=== PATIENT | female | born 1945 | race Caucasian/White ===

== ENCOUNTER → 2017-12-23 15:58 | Outpatient (CLI) | payer MEDICARE, SELFPAY ==
--- NOTE | 2017-12-23 16:06 | DI.US.S_ITS ---
PROCEDURE: US CAROTID DOPPLER BI INDICATIONS: OCCLUSION AND STENOSIS OF BILATERAL CAROTID ARTERIES TECHNIQUE: Color and pulse Doppler interrogation was performed of both carotid systems, with image documentation and velocity measurements. COMPARISON: [facility], US, US VASCULAR SCREENING, 06/04/2017, 11:46. FINDINGS: Stenosis calculations are based on SRU (Society of Radiologists in Ultrasound) criteria. Right side: Brachial blood pressure: 115/68 mm Hg. Common carotid artery peak systolic velocity: 111 cm/sec. Internal carotid artery peak systolic velocity: 149 cm/sec. Internal carotid artery end diastolic velocity: 21 cm/sec. External carotid artery peak systolic velocity: 159 cm/sec. ICA/CCA peak systolic ratio: 1.3. Bryan scale imaging description: Moderate scattered plaque Percent internal carotid artery stenosis: 50-69% stenosis. Vertebral artery: Flow direction is antegrade. Left side: Brachial blood pressure: 111/67 mm Hg. Common carotid artery peak systolic velocity: 88 cm/sec. Internal carotid artery peak systolic velocity: 85 cm/sec. Internal carotid artery end diastolic velocity: 30 External carotid artery peak systolic velocity: 193 cm/s ICA/CCA peak systolic ratio: 1.0. Bryan scale imaging description: Moderate scattered plaque. Percent internal carotid artery stenosis: Less than 50% stenosis Vertebral artery: Flow direction is antegrade. IMPRESSION: 1. 50-69% stenosis involving the right internal carotid artery. 2. Less than 50% left internal carotid artery stenosis. Dictated by: Simon Hayden [facility] Interpreted: Bailee Singleton MD on 12/24/2017 at 8:01 Approved by: Bailee Singleton MD, PhD on 12/24/2017 at 10:33
== END ==
PROVIDERS: Family Provider Internal Medicine; Visit Provider Internal Medicine
DX: I65.23 Occlusion and stenosis of bilateral carotid arteries (principal)
CPT/HCPCS: 93880

== ENCOUNTER 2025-01-15 19:17 | Emergency (ER) | payer MEDICARE, SELFPAY ==
[2025-01-15 19:41] VITALS: BP 186/78; PULSE 84; RESP 16; TEMP 37.2; O2SAT 97; BMI 23.6
--- NOTE | 2025-01-15 19:47 | DI.RAD.S_ITS ---
PROCEDURE: XR CHEST 2V INDICATIONS: fall TECHNIQUE: 2 views of the chest were acquired. COMPARISON: None. FINDINGS: Surgical changes and devices: Calcified breast implants. Lungs and pleura: Lungs are clear. No pleural effusions or pneumothorax. Mediastinum: Mediastinal contours are normal. Heart size is normal. Bones and chest wall: No suspicious bony abnormalities. Soft tissues appear unremarkable. IMPRESSION: No acute cardiopulmonary abnormality is seen. Dictated by: Brian Zhou M.D. on 01/15/2025 at 21:39 Approved by: Brian Zhou M.D. on 01/15/2025 at 21:40
--- NOTE | 2025-01-15 19:47 | DI.RAD.S_ITS ---
PROCEDURE: XR ANKLE RT MIN 3V INDICATIONS: fall TECHNIQUE: 3 views of the ankle were acquired. COMPARISON: [facility], CR, XR FOOT RT MIN 3V, 01/15/2025, 19:54. FINDINGS: Bones: No fractures or dislocations. Ankle mortise is normally aligned. No suspicious bony lesions. Mild degenerative changes. Soft tissues: No tibiotalar joint effusion. Achilles tendon appears normal. IMPRESSION: No acute osseous abnormality. Dictated by: Brian Zhou M.D. on 01/15/2025 at 21:40 Approved by: Brian Zhou M.D. on 01/15/2025 at 21:41
--- NOTE | 2025-01-15 19:47 | DI.RAD.S_ITS ---
PROCEDURE: XR FOOT RT MIN 3V INDICATIONS: fall TECHNIQUE: 3 views of the foot were acquired. COMPARISON: [facility], CR, XR ANKLE RT MIN 3V, 01/15/2025, 19:54. FINDINGS: Bones: No acute fracture identified. Somewhat irregular appearance at the 5th digit interphalangeal joint. There appears to be a bone graft . No dislocation. No suspicious bony lesions. Periarticular lucency at the 5th metatarsal head. Small plantar calcaneal spur. Soft tissues: No tibiotalar joint effusion. Achilles tendon appears normal. IMPRESSION: No acute abnormality identified. Suspected postsurgical change at the 5th digit interphalangeal joint with possible bone graft. Periarticular lucency at the 5th metatarsal head. Findings could be due to an inflammatory arthropathy. Dictated by: Brian Zhou M.D. on 01/15/2025 at 21:41 Approved by: Brian Zhou M.D. on 01/15/2025 at 21:45
[2025-01-15 20:59] VITALS: BP 129/63; PULSE 85; O2SAT 97
[2025-01-15 21:00] VITALS: PULSE 82; O2SAT 97
[2025-01-15 21:01] VITALS: BP 160/69; PULSE 84; O2SAT 97
--- NOTE | 2025-01-15 21:22 | ED_ITS ---
HPI - Fall General Chief Complaint: Fall Stated Complaint: fall, Rt foot swollen , chest pain no thinners Time Seen by Provider: 01/15/25 21:12 Source: patient Mode of arrival: Ambulatory History of Present Illness HPI Narrative: 79-year-old female fell in her home garden yesterday on irregular loose gravel surface, mechanical fall in nature, scraped left anterior murray, has pain and swelling that is increasing to her right foot and also some ankle, right anterior chest wall discomfort as well. Denies increasing shortness of breath. Denies fevers or chills. Denies cough. Denies abdominal or back pain. Denies pain to upper extremities. Denies neck pain. Related Data Home Medications ?Medication ?Instructions ?Recorded ?Confirmed albuterol sulfate 90 mcg/actuation 2 inh inhalation Q6 H PRN shortness 01/15/25 01/15/25 aerosol inhaler of breath or wheezing lisinopril 20 mg tablet 20 mg PO DAILY 01/15/2501/03 Allergies Allergy/AdvReac Type Severity Reaction Status Date / Time acetaminophen (From Percocet) Allergy Intermediate Vomiting Verified 01/15/25 19:39 codeine Allergy Intermediate Verified 01/15/25 19:39 oxycodone (From Percocet) Allergy Intermediate Vomiting Verified 01/15/25 19:39 latex (LATEX) Allergy Unknown Unverified 01/15/25 19:39 Sulfa (Sulfonamide Allergy Unknown Unverified 01/15/25 19:39 Antibiotics) (SULFA (SULFONAMIDE ANTIBIOTICS)) Patient History Social History Smoking Status: Current every day smoker Smoking Status: Current every day smoker tobacco type: cigarettes Alcohol type: hard liquor Exam Narrative Exam Narrative: GENERAL: Well-developed patient, in mild distress. HEAD: Atraumatic. Normocephalic. EYES: Pupils equal round and reactive. Extraocular motions intact. No scleral icterus. No injection or drainage. ENT: Nose without bleeding, purulent drainage. Throat without erythema, tonsillar hypertrophy or exudate. Airway patent. NECK: Trachea midline. Non tender CARDIOVASCULAR: Regular rate and rhythm without murmurs, gallops, or rubs. RESPIRATORY: Clear to auscultation. Breath sounds equal bilaterally. No wheezes, rales, or rhonchi. GASTROINTESTINAL: Abdomen soft, non-tender, nondistended. EXTREMITIES: Left anterior murray with skip lesions strip of abrasions proximally 20 cm in length, no suturable lacerations, no surrounding erythema cellulitis like changes, good cap refill distal extremity. Right ankle tenderness with medial and lateral joint line tenderness but no gross deformity. Right foot has ecchymoses dorsally mid foot with no crepitance but tenderness. BACK: Nontender without deformity or crepitance. No flank tenderness. NEURO: AOx3. Motor functions grossly nonfocal. SKIN: No rash or erythema of visible areas Initial Vital Signs Initial Vital Signs: Vital Signs Temperature 99.0 F 01/15/25 19:41 Pulse Rate 84 01/15/25 19:41 Respiratory Rate 16 01/15/25 19:41 Blood Pressure 186/78 H 01/15/25 19:41 Pulse Oximetry 97 01/15/25 19:41 Oxygen Delivery Method Room Air 01/15/25 19:41 Course Orders Ordered: Discontinued Medications Diphtheria/Tetanus/Acell Pertussis (Tet,Diph,Pertuss(Acell),Vac/Pf 0.5 Ml Syringe) 0.5 ml IM .ONCE ONE Stop: 01/15/25 21:23 Last Admin: 01/15/25 21:27 Dose: 0.5 ml Documented By: SGF Vital Signs Vital signs: Vital Signs - 8 hr 01/15/25 19:41 01/15/25 20:59 01/15/25 20:59 Temperature 99.0 F Pulse Rate 84 85 Respiratory Rate 16 Blood Pressure 186/78 H 129/63 Pulse Oximetry 97 97 Oxygen Delivery Method Room Air 01/15/25 21:00 01/15/25 21:01 01/15/25 21:01 Temperature Pulse Rate 82 84 Respiratory Rate Blood Pressure 160/69 H Pulse Oximetry 97 97 Oxygen Delivery Method 01/15/25 21:30 01/15/25 21:31 01/15/25 21:31 Temperature Pulse Rate 88 86 Respiratory Rate Blood Pressure 191/77 H Pulse Oximetry 98 97 Oxygen Delivery Method MDM - Fall Imaging Data Extremity x-ray #1: Radiologist's Impression: [address] [address] XRay Report Signed Patient: Leigh Gayle MR#: [id number] : 1945 Acct:[id number] Age/Sex: 79 / F Date of Service: 01/15/25 Loc: ED Accession Number: [id number] Procedure: XR foot RT min 3V Ordering Provider: Ilya Hernandez MD PROCEDURE: XR FOOT RT MIN 3V INDICATIONS: fall TECHNIQUE: 3 views of the foot were acquired. COMPARISON: [facility], CR, XR ANKLE RT MIN 3V, 01/15/2025, 19:54. FINDINGS: Bones: No acute fracture identified. Somewhat irregular appearance at the 5th digit interphalangeal joint. There appears to be a bone graft . No dislocation. No suspicious bony lesions. Periarticular lucency at the 5th metatarsal head. Small plantar calcaneal spur. Soft tissues: No tibiotalar joint effusion. Achilles tendon appears normal. IMPRESSION: No acute abnormality identified. Suspected postsurgical change at the 5th digit interphalangeal joint with possible bone graft. Periarticular lucency at the 5th metatarsal head. Findings could be due to an inflammatory arthropathy. Dictated by: Brian Zhou M.D. on 01/15/2025 at 21:41 Approved by: Brian Zhou M.D. on 01/15/2025 at 21:45 Extremity x-ray #2: Radiologist's Impression: Leigh Gayle??79??F??1945 ? Allergy/Adv: acetaminophen, codeine, oxycodone, latex, Sulfa (Sulfonamide Antibiotics) [place] [address] XRay Report Signed Patient: Leigh Gayle MR#: [id number] : 1945 Acct:[id number] Age/Sex: 79 / F Date of Service: 01/15/25 Loc: ED Accession Number: [id number] Procedure: XR ankle RT min 3V Ordering Provider: Ilya Hernandez MD PROCEDURE: XR ANKLE RT MIN 3V INDICATIONS: fall TECHNIQUE: 3 views of the ankle were acquired. COMPARISON: [facility], , XR FOOT RT MIN 3V, 01/15/2025, 19:54. FINDINGS: Bones: No fractures or dislocations. Ankle mortise is normally aligned. No suspicious bony lesions. Mild degenerative changes. Soft tissues: No tibiotalar joint effusion. Achilles tendon appears normal. IMPRESSION: No acute osseous abnormality. Dictated by: Brian Zhou M.D. on 01/15/2025 at 21:40 Approved by: Brian Zhou M.D. on 01/15/2025 at 21:41 Chest x-ray: Radiologist's Impression: [address] [address] XRay Report Signed Patient: Leigh Gayle MR#: [id number] : 1945 Acct:[id number] Age/Sex: 79 / F Date of Service: 01/15/25 Loc: ED Accession Number: [id number] Procedure: XR chest 2V Ordering Provider: Ilya Hernandez MD PROCEDURE: XR CHEST 2V INDICATIONS: fall TECHNIQUE: 2 views of the chest were acquired. COMPARISON: None. FINDINGS: Surgical changes and devices: Calcified breast implants. Lungs and pleura: Lungs are clear. No pleural effusions or pneumothorax. Mediastinum: Mediastinal contours are normal. Heart size is normal. Bones and chest wall: No suspicious bony abnormalities. Soft tissues appear unremarkable. IMPRESSION: No acute cardiopulmonary abnormality is seen. Dictated by: Brian Zhou M.D. on 01/15/2025 at 21:39 Approved by: Brian Zhou M.D. on 01/15/2025 at 21:40 [facility] Narrative Medical decision making narrative: 79-year-old female with ground level fall yesterday, increasing right foot pain and swelling with bruising, right ankle pain, left anterior murray abrasion, right anterior chest discomfort. No respiratory distress. X-ray chest, right ankle, right foot ordered from triage. On my view lateral aspect of the right foot has some haziness and indistinct cuneiform mid foot anatomy, possible fracture, could be arthritic change, we will image right foot with CT scan noncontrast study. XRay foot no distinct fracture. CXR negative. Ankle XRay negative. See ra diology reports. Pt reportedly eloped after XRays, did not stay for CT imaging per nursing. No DC information given by me. Discharge Plan Departure Patient Disposition: Elopement Clinical Impression: Eloped from emergency department, Contusion of foot, Ankle contusion, Chest wall contusion Prescriptions: No Action lisinopril 20 mg tablet 20 mg PO DAILY albuterol sulfate 90 mcg/actuation HFA aerosol inhaler 2 inh inhalation Q6H PRN (Reason: shortness of breath or wheezing)
[2025-01-15] MEDS: TET,DIPH,PERTUSS(ACELL),VAC/PF 0.5 ML SYRINGE IM (21:27)
[2025-01-15 21:30] VITALS: PULSE 88; O2SAT 98
[2025-01-15 21:31] VITALS: BP 191/77; PULSE 86; O2SAT 97
--- NOTE | 2025-01-15 22:00 | PC.NURSE ---
pt states she needs to go home already and does not want to say. pt states she has dogs to let out and take care of and if she needs to come back she will come back tomorrow if symptoms worsen
== END 2025-01-15 22:10 | disposition left against medical advice (07) ==
PROVIDERS: Emergency Provider Emergency Medicine; Family Provider Internal Medicine
DX: S90.31XA Contusion of right foot, initial encounter (principal); S90.01XA Contusion of right ankle, initial encounter; S20.211A Contusion of right front wall of thorax, initial encounter; W18.30XA Fall on same level, unspecified, initial encounter; Y93.H2 Activity, gardening and landscaping; F17.210 Nicotine dependence, cigarettes, uncomplicated; Z23 Encounter for immunization
CPT/HCPCS: 71046; 73610; 73630; 90471; 99283; 90715

== ENCOUNTER 2025-01-16 19:54 | Emergency (ER) | payer MEDICARE, SELFPAY ==
--- NOTE | 2025-01-16 20:00 | ED_ITS ---
HPI - General Adult General Chief complaint: Extremity Injury, Lower Stated complaint: ct scan Time Seen by Provider: 01/16/25 20:00 History of Present Illness HPI narrative: 79-year-old female had recent fall, was seen here yesterday had x-rays of the right foot and ankle as well as the chest, on initial evaluation on my view when I saw her that time I thought there was some haziness in the mid foot, there was no report back from the radiologist at that time, we discussed CT foot imaging which she had verbally agreed to, but then end up eloping from the emergency department without that imaging. She is not using any walker or crutches, not using any immobilization, walking around in her sandals, still has swelling to her right foot. She is interested in CT scan of the foot tonight. No new injuries, though she has been weight-bearing on the affected foot. Related Data Home Medications ?Medication ?Instructions ?Recorded ?Confirmed albuterol sulfate 90 mcg/actuation 2 inh inhalation Q6 H PRN shortness 01/15/25 01/15/25 aerosol inhaler of breath or wheezing lisinopril 20 mg tablet 20 mg PO DAILY 01/15/2501/03 Allergies Allergy/AdvReac Type Severity Reaction Status Date / Time acetaminophen (From Percocet) Allergy Intermediate Vomiting Verified 01/16/25 20:16 codeine Allergy Intermediate Verified 01/16/25 20:16 oxycodone (From Percocet) Allergy Intermediate Vomiting Verified 01/16/25 20:16 latex (LATEX) Allergy Unknown Unverified 01/16/25 20:16 Sulfa (Sulfonamide Allergy Unknown Unverified 01/16/25 20:16 Antibiotics) (SULFA (SULFONAMIDE ANTIBIOTICS)) Patient History tobacco type: cigarettes Alcohol type: hard liquor Exam Narrative Exam Narrative: GENERAL: Well-developed patient, in mild distress. HEAD: Atraumatic. Normocephalic. EYES: Pupils equal round and reactive. Extraocular motions intact. No scleral icterus. No injection or drainage. ENT: Nose without bleeding, purulent drainage. Airway patent. NECK: Trachea midline. Moves neck well. CARDIOVASCULAR: Regular rate and rhythm without murmurs, gallops, or rubs. RESPIRATORY: Clear to auscultation. Breath sounds equal bilaterally. No wheezes, rales, or rhonchi. GASTROINTESTINAL: Abdomen soft, non-tender, nondistended. EXTREMITIES: Swelling to the right foot, similar appearance to yesterday. She is wearing a sandal, no other foot ankle support device. BACK: Nontender without deformity or crepitance. No flank tenderness. NEURO: AOx3. Motor functions grossly nonfocal. SKIN: No rash or erythema of visible areas Initial Vital Signs Initial Vital Signs: Vital Signs Pulse Rate 98 H 01/16/25 20:14 Pulse Oximetry 95 01/16/25 20:14 Course Vital Signs Vital signs: Vital Signs - 8 hr 01/16/25 20:16 Temperature 98.9 F Pulse Rate 87 Respiratory Rate 18 Blood Pressure 151/106 H Pulse Oximetry 96 Oxygen Delivery Method Room Air Medical Decision Making [facility] Narrative Medical decision making narrative: 79-year-old female with recent fall, seen yesterday here with right ankle foot swelling as well as right anterior chest discomfort, x-ray chest and right foot and right ankle films done at that time, there was some haziness I my view to the right foot with discussion about obtaining CT foot yesterday, but the patient eloped in left from that visit. She returns now wanting the CT scan, however ironically, are CT scanner went down about 30 minutes ago. X-ray report from yesterday was obtained, which was not available at the time of this discuss ion yesterday, no acute changes noted, arthritic change in postoperative 5th digit changes noted. I gave a copy of the report to the patient. She is still walking around on that affected ankle/foot. Advised walking boot support, and trial of nonweightbearing with use of her walker for now. Rest, ice, elevation, compression. She seemed agreeable to that plan. Recheck advised with the regular doctor in the next couple of days. Return precautions discussed. Discharge Plan Departure Patient Disposition: Home Clinical Impression: Right foot strain Activity Restrictions/Additional Instructions: Right foot injury, previous visit yesterday you had eloped from the emergency department after discussion about getting a CT scan of the foot given their haziness of the mid foot on my view of the x-ray. Subsequently there was an x- ray over reading yesterday last night that did not show any fracture, no acute changes, some arthritic and postoperative changes. You did have had swelling but you been walking around in your sandals on the affected foot. You are presenting again tonight to requests the CT scan of the foot. We gave you the report from visit last night from the radiologist, no acute fracture seen. CT unfortunately is down just 1 hour ago, unclear when it will be up inoperable. We can not obtain a CT scan of the foot now, in perhaps as not indicated at this time given the available normal reading that was not available yesterday at the time of discussion about CT scanning. For now consider Syed wrap compression, ice, elevation and immobilization. Use of walker boot. Nonweightbearing with your walker that you have at home. Recheck with your regular doctor in the next couple of days. If symptoms persist then advanced imaging such as CT scan could be pursued. Return earlier to this/nearest emergency department for any change worsening symptoms or any concerns prior. Prescriptions: No Action lisinopril 20 mg tablet 20 mg PO DAILY albuterol sulfate 90 mcg/actuation HFA aerosol inhaler 2 inh inhalation Q6H PRN (Reason: shortness of breath or wheezing) Stand Alone Forms: Patient Portal/API
[2025-01-16 20:14] VITALS: PULSE 98; O2SAT 95
[2025-01-16 20:15] VITALS: BP 151/106; PULSE 90; O2SAT 96
[2025-01-16 20:16] VITALS: BP 151/106; PULSE 87; RESP 18; TEMP 37.2; O2SAT 96; BMI 23.6
[2025-01-16 21:34] VITALS: BP 150/90; PULSE 85; RESP 18; O2SAT 96
== END 2025-01-16 21:36 | disposition home or self-care (01) ==
PROVIDERS: Emergency Provider Emergency Medicine; Family Provider Internal Medicine
DX: S96.911D Strain of unspecified muscle and tendon at ankle and foot level, right foot, subsequent encounter (principal)
CPT/HCPCS: 99281